=== PATIENT | female | born 1960 | race Caucasian/White ===

== ENCOUNTER → 2016-12-23 | Outpatient (CLI) | payer OTHER ==
[2016-12-23 17:21] LABS: THYROID STIMULATING HORMONE 1.06 uIu/ml (0.300-4.500)
[2016-12-23 18:22] LABS: PROLACTIN 7.71 ng/mL
== END | disposition home or self-care (01) ==
LOC: C.LAB1850 15:03
PROVIDERS: ATTEND Internal Medicine Endocrinology, Diabetes & Metabolism
DX: E22.1 Hyperprolactinemia (principal)